=== PATIENT | female | born 1955 | race Asian ===

== ENCOUNTER → 2018-09-18 15:22 | Outpatient (CLI) | payer OTHER, SELFPAY ==
--- NOTE | 2018-09-18 | DI.MRI.S_ITS ---
PROCEDURE: MR FOOT RT WO/W CON INDICATIONS: DISPLACED FRACTURE OF SECOND METATARSAL RIGHT FOOT additional clinic notes indicate the study is performed to assess for avascular necrosis of the second metatarsal head. TECHNIQUE: Noncontrast sagittal T1 spin echo and T2 fast spin echo with fat saturation, long-axis T1 spin echo and T2 fast spin echo with fat saturation; short-axis T1 spin echo, proton density fast spin echo, and T2 fast spin echo with fat saturation through the forefoot. Post-contrast short axis, long axis, and sagittal T1 spin echo with fat saturation through the forefoot. COMPARISON: None. FINDINGS: Image quality: Excellent. Bones and joints: No suspicious osseous enhancement. Through the visualized hindfoot and midfoot. There is a fracture involving the second metatarsal bone, with marrow space edema predominantly distally and diminishing proximally, and the fracture plane appears to be at the metatarsal head/neck junction. No additional areas of bone marrow contusions are present nor is there evidence of metatarsal stress fractures. The area of the second metatarsal head/neck junction fracture and the metatarsal head itself shows contrast enhancement, indicating patent vascular supply rather than avascular necrosis. The sesamoid bones appear in expected positions, without internal edema. No metatarsophalangeal joint degeneration. No intraosseous lesions. There is mild edema at the medial first metatarsal head in this patient with what appears to be mild bunion formation in that area. Soft tissues: No suspicious soft tissue enhancement. The visualized plantar foot muscles demonstrate normal signal and bulk. Visualized flexor and extensor tendons appear intact, without tenosynovitis. The distal insertions of the peroneus brevis and longus tendons appear intact. The principal Lisfranc ligament appears intact. No soft tissue ganglion cysts or bursal fluid collections. Sagittal images demonstrate no evidence for plantar plate tears. IMPRESSION: Comparison plain film or CT scanning has not been provided for review. This MR study represents the single available right foot imaging. By location and appearance the second metatarsal head/neck junction fracture appears likely posttraumatic rather than pathologic. There is expected contrast enhancement at the metatarsal head and neck, which argues towards intact blood supply into these regions rather than avascular necrosis. Contrast enhancement tapers proximally away from the entry into the metatarsal shaft and towards the base of the second metatarsal. This is an expected finding in the setting of distal traumatic fracture. No secondary stress fracture or stress reaction appears present. Note is made of mild edema involving the medial first metatarsal head perhaps related to bunion formation or even potentially mild gout. Dictated by: Hemanth Ballard M.D. on 09/18/2018 at 17:02 Approved by: Hemanth Ballard M.D. on 09/18/2018 at 17:08
== END ==
PROVIDERS: Visit Provider Orthopaedic Surgery
DX: S92.321A Displaced fracture of second metatarsal bone, right foot, initial encounter for closed fracture (principal); R60.9 Edema, unspecified
CPT/HCPCS: 73720; A9579